=== PATIENT | female | born 1980 | race African-American/Black ===

== ENCOUNTER → 2018-12-14 | Outpatient (CLI) | payer BC ==
[~2018-12-14] MED LIST: ALTACE 10MG TAB10 MG PO; GLUCOPHAGE500 MG/TAB PO; LIPITOR 10MG10 MG PO; NORVASC 10MG10 MG PO; SYNTHROID0.05 MG/TA PO
== END ==
LOC: LIGHT 15:56
DX: E88.81 Metabolic syndrome and other insulin resistance (principal); E11.65 Type 2 diabetes mellitus with hyperglycemia; I10 Essential (primary) hypertension; E66.9 Obesity, unspecified; Z68.38 Body mass index [BMI] 38.0-38.9, adult; Z71.3 Dietary counseling and surveillance

== ENCOUNTER → 2018-12-17 | Outpatient (CLI) | payer BC ==
[~2018-12-17] VITALS: Ht 161.3 cm; Wt 97.5 kg
[2018-12-17 15:55] VITALS: BP 128/66; PULSE 76
== END ==
LOC: LIGHT 12-15 14:49
DX: E88.81 Metabolic syndrome and other insulin resistance (principal); E11.65 Type 2 diabetes mellitus with hyperglycemia; I10 Essential (primary) hypertension; E66.9 Obesity, unspecified; Z68.37 Body mass index [BMI] 37.0-37.9, adult; Z71.3 Dietary counseling and surveillance
CPT/HCPCS: G0463